=== PATIENT | male | born 1950 | race African-American/Black ===

== ENCOUNTER → 2018-03-12 | Outpatient (CLI) | payer OTHER ==
[~2018-03-12] VITALS: Ht 182.9 cm; Wt 98.4 kg
[~2018-03-12] MED LIST: ALLOPURINOL 30300 M2 PO; CARVEDILOL25 MG PO; CATAPRES0.2 MG PO; CIPROFLOXACIN500 M1 PO; FLAGYL500 M1 PO; FLOMAX0.4 MG PO; HYDROCODONE-AP1 EAC6 PO; HYDROCODONE-APA1 TA1 PO; KLOR-CON 1010 MEQ PO; LASIX 40 MG TAB40 M2 PO; LOPRESSOR50 PO; LOVASTATIN 20 M20 MG PO; MEDROL DOSPAK21 TA1 PO; METHOCARBAMOL500 M2 PO; NORVASC10 MG PO; PARICALCITOL1 MCG PO; PERCOCET 5-3251 EACH PO; PRILOSEC40 MG PO
--- NOTE | ~2018-03-12 | HPC ---
[facility] [place] [address] PAIN MANAGEMENT CONSULTATION Name: CELESTINO CALDERÓN Room #: REG ALFREDITO CalinTruongYesseniaTruong#: [id number] Admission: 03/12/18 Attend Phys: En Poole MD Discharge: Date of : 46 Report #: [id number] THIS REPORT FOR: //name// CC: En Poole Physician staff MU [facility]INSON DATE OF SERVICE: 03/12/2018 CHIEF COMPLAINT: Low back pain. HISTORY OF PRESENT ILLNESS: The patient is a 68-year-old gentleman who has been referred to the pain clinic for evaluation of back and leg pain. The patient has been seen in the pain clinic [place] [address] Elias Sena. The patient has returned today indicating that his pain has increased. He is experiencing pain that is radiating down into his thighs. It involves his low back. Notes that the pain has been problematic since 2014. Epidural steroid injection in the past have helped. He has returned today for evaluation and treatment. The patient states that he has fallen in the past. Cause some problems and trauma to his back. The patient states that he fell while trimming a tree in about 1998. Clipped his disk and fractured his wrist in 5 places, broke 6 ribs. ALLERGIES: No known drug allergies. CURRENT MEDICATIONS: Flomax 0.4 mg, Lopressor 50 mg, losartan, lovastatin 20 mg, Lasix 40 mg, allopurinol 150 mg daily, Prilosec 40 mg, Catapres 0.2 mg, Norvasc 10 mg. PAST MEDICAL HISTORY: Hypertension, kidney disease, gout, hypercholesterolemia. PAST SURGICAL HISTORY: Right wrist surgery, cholecystectomy 1977. SOCIAL HISTORY: Denies use of alcohol use. Denies use of recreational drugs. REVIEW OF SYSTEMS: Low back pain. Wears glasses, blurred vision, frequent urination, awakens to urinate at night. PAIN CLINIC ASSESSMENT: 1. History of osteoarthritis. The patient is not being treated for osteoarthritis or rheumatoid arthritis. Height 6 feet, weight 217 pounds, BMI is 29.4. 2. Vital signs: Blood pressure 141/82. 3. Saturation was 98%. 4. Pain intensity 08/19/2017. 5. Fall risk. The patient has not fallen in the last 3 months. 6. Blood thinner. The patient is not on blood thinning medication. [address] [address] PAIN MANAGEMENT CONSULTATION Name: CELESTINO CALDERÓN Caren Room #: REG [facility]#: [id number] Admission: 03/12/18 Attend Phys: En Poole MD Discharge: Date of : 46 Report #: [id number] 7. Hypertension. The patient is being treated for hypertension. 8. Opioid use. The patient is not being receiving opioid medication from chronic pain relief. 9. Risk assessment tool, low for opioid use. 10. Functional assessment 12 out of 70. 11. Tobacco use. The patient has never smoked cigarettes. 12. Alcohol: The patient denies use of alcoholic beverages. PHYSICAL EXAMINATION: GENERAL: The patient is a well-developed, well-nourished gentleman. The patient is a well-developed, well-nourished black male, appears his stated age. He is alert and oriented x 3. His affect is appropriate. Speech is fluent. HEENT: Normocephalic, atraumatic. Extraocular eye muscles intact. Sclerae nonicteric. NECK: Good range of motion. HEART: Regular rate. LUNGS: Clear to auscultation. The patient has a noted pain and discomfort in his low back area. Forward bending to about 70 degrees. Left and right lateral bending, left lateral bending caused some increased pain in the back area. The patient has some pain and discomfort, which radiated down into the L3-L4 distribution. The patient had experienced epidural steroid injections in this area in the past. He did note improvement in his pain. He would like to proceed with an epidural steroid injection today. IMPRESSION: 1. Symptomatic L3-L4 dermatomal pain on the left, which improved with epidural steroid injections in the past. 2. Dialysis. 3. Hypertension. 4. Kidney disease. 5. Gout. 6. Hypercholesterolemia. RECOMMENDATIONS: We discussed treatment options with the patient. Risks and benefits of an epidural steroid injection were discussed. Possible complications of the procedure were reviewed. They include but are not limited to infection, increased muscle soreness, headaches, worsening of pain, improvement in pain, spinal headache and the patient elects to proceed. PROCEDURE NOTE: The patient was placed in the prone position. Fluoroscopy was used to identify the L3-L4 interspace. There is a significant amount of changes noted in this area as a result of his fall. A 0.25% bupivacaine was infiltrated. A total of 80 mg Depo-Medrol, 40 mg triamcinolone and 2 mL of 0.25% bupivacaine was injected. The patient tolerated the procedure well initially. He started to notice some "breaking out of sweating". The bed was lowered in the Trendelenburg position, lowering his head. After about a minute [facility] [address] [place] [address] PAIN MANAGEMENT CONSULTATION Name: CELESTINO CALDERÓN Room #: REG GERMAINE Anaya#: [id number] Admission: 03/12/18 Attend Phys: En Pooel MD Discharge: Date of : 46 Report #: [id number] or two, he noticed that his sweating and the anxiety began to subside. The patient was taken to the recovery room where he remained for an appropriate amount of time. There were no complications. He will follow up in the future as needed. We would like to thank you for letting us participate in his care. We hope he continues to improve. By: 1938 9 En Poole MD /fabio
[2018-03-12 12:34] VITALS: BP 141/82
== END | disposition home or self-care (01) ==
LOC: PAIN 07:04
DX: M53.86 Other specified dorsopathies, lumbar region (principal); M54.5 Low back pain; I10 Essential (primary) hypertension; N28.9 Disorder of kidney and ureter, unspecified; M10.9 Gout, unspecified; E78.00 Pure hypercholesterolemia, unspecified; M19.90 Unspecified osteoarthritis, unspecified site; Z79.899 Other long term (current) drug therapy; Z98.890 Other specified postprocedural states; Z90.49 Acquired absence of other specified parts of digestive tract; Z99.2 Dependence on renal dialysis